=== PATIENT | male | born 1995 | race Hispanic/Latino ===

== ENCOUNTER 2017-03-23 07:22 | Emergency (ER) | payer SELFPAY ==
[2017-03-23] MEDS ORDERED: NACL 0.9% 1000 ML 1,000 ML IV ONE (07:48)
[2017-03-23] MEDS ORDERED: BOOSTRIX IM ONE (08:02)
[2017-03-23 08:29] LABS: Basophils % (Auto) 0.4 % (0.0-1.8); Eosinophils % (Auto) 0.2 % (0.0-4.3); Hemoglobin 15.1 gm/dl (11.8-15.2); Mean Corpuscular HGB Conc 33 % (32-34); Mean Corpuscular Hemoglobin 30 pg (28-32); Mean Corpuscular Volume 91 fl (84-94); Platelet Count 198 K/mm3 (140-440); Red Blood Count 5.04 M/mm3 (3.65-5.03); Red Cell Distribution Width 14.3 % (13.2-15.2); White Blood Count 7.1 K/mm3 (4.5-11.0)
--- NOTE | 2017-03-23 08:50 | Emergency Department Report ---
ED Seizure HPI - General Chief Complaint: Seizure Stated Complaint: SEIZURE Time Seen by Provider: 03/23/17 07:47 Source: patient, EMS Mode of arrival: Stretcher Limitations: No Limitations - History of Present Illness MD Complaint: seizure -: Gradual, hour(s) Description of Episode: loss of consciousness -: second(s) Seizure History: compliant with medication (reports that he has not been eating and that his sugar dropped to low. history Type [address]) [address]: other (hotel here visiting from [place]) Associated Symptoms: loss of appetite, other (head laceration superficial). denies: chest pain, confusion, cough, diaphoresis, fever/chills, malaise, rash, shortness of breath, syncope, weakness, tongue injury, shoulder dislocation - Related Data Allergies Allergy/AdvReac Type Severity Reaction Status Date / Time No Known Allergies Allergy Unverified 03/23/17 07:36 ED Review of Systems ROS: Stated complaint: SEIZURE Other details as noted in HPI Other: GENERAL: No weight change, fatigue, weakness, fever, chills, or night sweats SKIN: No changes in skin or hair, no itching, no rashes, no jaundice HEAD: No trauma, headache, or visual changes EYES: No blurriness, tearing, itching, acute visual loss, conjunctival discoloration, or scleral icterus EARS: No hearing loss, tinnitus, vertigo, or earache NOSE: No rhinorrhea, stuffiness, sneezing, itching, or epistaxis MOUTH: No bleeding gums, hoarseness, sore throat, or swelling CARDIAC: No new murmur, chest pain, palpitations, dyspnea on exertion, orthopnea , PND, or edema RESPIRATORY: No shortness of breath, wheeze, cough, sputum production, hemoptysis, pneumonia, asthma, bronchitis, or emphysema GI: No change in appetite, nausea, vomiting, dysphagia, change in bowel frequency, diarrhea, constipation, bleeding, hematemesis, melena, hematochezia, or abdominal pain URINARY: No frequency, urgency, polyuria, dysuria, hematuria, or incontinence MUSCULOSKELETAL: No muscle weakness, joint stiffness, decrease in range of motion, redness, swelling, tenderness NEUROLOGIC: history of seizure when sugar dropped to low before. No loss of sensation, numbness, tingling, tremors, weakness, paralysis, HEMATOLOGIC: No anemia, easy bruising, bleeding, petechiae, or purpura ENDOCRINE: No hot or cold intolerance, sweating, polyuria, polydipsia or, polyphagia no thyroid problems PSYCHIATRIC: No change in mood, no anxiety, no depression ED Past Medical Hx - Past Medical History Previous Medical History?: Yes Hx Diabetes: Yes Hx Seizures: Yes - Surgical History Past Surgical History?: No - Social History Smoking Status: Never Smoker Substance Use Type: Alcohol, Marijuana ED Physical Exam - General Limitations: No Limitations - Other Other exam information: GENERAL: Patient in no acute distress HEAD: Normocephalic, superfical laceration approx 2 cm in length over parietal- occipital area EYES: PERRLA, EOM intact, no scleral icterus, no conjunctival hemorrhage, visual coley and acuity wnl, NOSE: No tenderness, discharge, sinus tenderness MOUTH: No erythema, bleeding, exudate HEART: Regular rate and rhythm, no murmur, S1-S2 are auscultated, pulses are symmetric LUNGS: No wheezing, rales, rhonchi, bilateral breath sounds ABDOMEN: Normal bowel sounds, no tenderness, no rebound, no guarding, no masses , no CVA tenderness MUSCULOSKELETAL: Normal joint range of motion, no redness, no swelling, no tenderness NEUROLOGIC: GCS 15, Alert and Oriented x3, Cranial nerves intact, normal sensation, normal strength, normal gait, no cerebellar deficit PSYCHIATRIC: No homicidal or suicidal ideation, no anxiety, no depression, no hallucinations SKIN: Skin is warm and dry, no rashes ED Course Vital Signs 03/23/17 03/23/17 07:32 09:30 Temperature 97.7 F Pulse Rate 92 H 75 Respiratory 20 18 Rate Blood Pressure 89/50 Blood Pressure 119/62 [Left] O2 Sat by Pulse 97 99 Oximetry - Laceration /Wound Repair Head Wound Location: head Wound's Depth, Shape: superficial Wound Explored: clean Betadine Prep?: No Number of Sutures: 1 (staple) Layer Closure?: No Sterile Dressing Applied?: Yes Progress: no complications ED Medical Decision Making - Lab Data Result diagrams: 03/23/17 08:14 03/23/17 08:14 Critical care attestation.: If time is entered above; I have spent that time in minutes in the direct care of this critically ill patient, excluding procedure time. ED Disposition Clinical Impression: Seizure, Laceration Disposition: DC-01 TO HOME OR SELFCARE Is pt being admited?: No Condition: Stable Instructions: New-Onset Seizure in Adults (ED), Laceration (ED) Referrals: PRIMARY CARE, [Primary Care Provider] - 2-3 Days BERTHA SIMON MD [Staff Physician] - 2-3 Days Time of Disposition: 10:31
[2017-03-23 09:38] LABS: Alanine Aminotransferase 15 units/L (7-56); Albumin 4.1 g/dL (3.9-5); Albumin/Globulin Ratio 1.4 %; Alkaline Phosphatase 65 units/L (35-129); Anion Gap 18 mmol/L; BUN/Creatinine Ratio 17.14; Blood Urea Nitrogen 12 mg/dL (9-20); Carbon Dioxide 22 mmol/L (22-30); Chloride 97.5 mmol/L (98-107); Glucose 212 mg/dL (75-100); Lipase 11 units/L (13-60); Potassium 4.5 mmol/L (3.6-5.0); Sodium 133 mmol/L (137-145)
[2017-03-23 09:50] VITALS: BP 119/62
[2017-03-23 11:15] LABS: Bilirubin,Urine NEG (Negative); Blood,Urine NEG (Negative); Ketones,Urine 20 mg/dL (Negative); Leukocyte Esterase,Urine NEG (Negative); Nitrite,Urine NEG (Negative); Protein,Urine <15 mg/dL mg/dL (Negative); Urobilinogen,Urine < 2.0 mg/dL (<2.0); WBC,Urine < 1.0 /HPF (0.0-6.0)
== END 2017-03-23 11:19 | disposition home or self-care (01) ==
LOC: ED 07:22
DX: S01.01XA Laceration without foreign body of scalp, initial encounter (principal); R56.9 Unspecified convulsions; E10.9 Type 1 diabetes mellitus without complications; W19.XXXA Unspecified fall, initial encounter; Y93.89 Activity, other specified; Y99.8 Other external cause status; Y92.89 Other specified places as the place of occurrence of the external cause
CPT/HCPCS: 12001; 36415; 80053; 81001; 82962; 83690; 84484; 85025; 90471; 90715; 96360; 99285; J7030; 96361